=== PATIENT | male | born 1955 | race Caucasian/White ===

== ENCOUNTER → 2021-08-13 | Outpatient (CLI) | payer MEDICARE, OTHER ==
--- NOTE | 2021-08-13 17:10 | KCIC ---
Study: MRI of the left hip without contrast INDICATION: Left hip pain. COMPARISON: Left hip radiographs 04/26/2021 TECHNIQUE: Multiplanar MR imaging of the left hip performed without the use of intravenous or intra-a rticular contrast. FINDINGS: Bones/hip: No fracture, avascular necrosis or stress reaction at the left hip. No fracture or focally aggressive marrow signal abnormality seen at the right hip or rest of the partially imaged pelvis. I ncompletely evaluated degenerative changes at L5-S1. Subchondral cystic change at the superior acetab ulum on the left with surrounding sclerosis. Degenerative osseous proliferation along the left acetab ular rim and femoral head/neck junction osteophyte formation. Mild appearing degenerative changes at the left more so than right sacroiliac joints. Mild pubic symphysis arthrosis. Mild arthrosis at the partially assessed right hip. Labrum/cartilage: The majority of the labrum is torn on the left. Associated paralabral cysts seen fr om anterior/superior to posterior such as on image 13 series 6. High-grade/full-thickness chondral lo ss involving both sides of the joint but the acetabulum to a slightly greater degree. Incomplete asse ssment of the right hip but there is also labral tearing and chondral loss. Ligamentum teres: Heterogeneous/thin but intact. Greater trochanteric bursa: Within normal limits. Musculotendinous: Intact iliopsoas, rectus femoris and gluteus medius/minimus. There is some edema of the gluteus minimus muscle but this appears to be reactive to the paralabral cysts, image 14 series 6. No tear or advanced tendinosis at the common hamstring origin. Mild scattered muscular fatty infil tration. Besides the mild edema of the left gluteus minimus muscle no significant muscular edema else where. Normal ischiofemoral space. Miscellaneous: Mild synovitis at the left hip and possibly particulate loose bodies. No mass effect o n.. Fat-containing inguinal hernia on the left. The left sciatic nerve bundle. IMPRESSION: 1. Moderate left hip arthrosis with high-grade and full-thickness chondral loss along both sides of the joint. The majority of the labrum is torn to varying extent with associated paralabral cyst forma tion extending from anterior/superior to posterior. Mild edema of the adjacent gluteus minimus muscle favored reactive to the cysts. Mild left hip joint synovitis potentially with particulate loose bodi es as well. 2. No acute or significant chronic tendon abnormality associated with the left hip. 3. The right hip is included in the [id number] on the coronal STIR sequence. Less pronounced dege nerative changes at the right hip but also with tearing of the labrum and chondrosis. 4. Incidental fat-containing left inguinal hernia. Electronically signed by: TINO NAVARRO MD (08/13/2021 5:07 PM) [id number]
== END ==
LOC: KCIC MRI 14:51
PROVIDERS: ATTEND Family Medicine
DX: M16.12 Unilateral primary osteoarthritis, left hip (principal); K40.90 Unilateral inguinal hernia, without obstruction or gangrene, not specified as recurrent; M65.88 Other synovitis and tenosynovitis, other site; R60.0 Localized edema; M24.852 Other specific joint derangements of left hip, not elsewhere classified; M25.852 Other specified joint disorders, left hip
CPT/HCPCS: 73721